=== PATIENT | female | born 1955 | race American Indian/Alaskan Native ===

== ENCOUNTER 2017-08-22 02:13 | Emergency (ER) | payer SELFPAY ==
--- NOTE | 2017-08-22 05:11 | Cat Scan Report ---
FINAL REPORT EXAM: CT HEAD/BRAIN WO CON HISTORY: Hypertension w/ headache hx. of anuerysym TECHNIQUE: CT imaging acquired through the head without intravenous contrast. Transaxial reformations are provided. PRIORS: None. FINDINGS: A right frontal ventriculostomy catheter is present extending through the right foramina of [place] into the 3rd ventricle. Sequela of aneurysmal treatment is present near the terminus of the right ICA. The ventricles, cisterns and sulci are otherwise within normal limits. No intraparenchymal or extra-axial mass, hemorrhage, or mass effect. Ray and white-matter differentiation is within normal limits for patient age. Normal spherical shape of the globes. No significant abnormality involving the imaged portions of the paranasal sinuses and mastoid air cells. No skull or facial fracture visualized. IMPRESSION: No acute intracranial abnormality.
[2017-08-22 05:15] LABS: Hematocrit 44.5 % (30.3-42.9); Hemoglobin 14.4 gm/dl (10.1-14.3); Mean Corpuscular HGB Conc 33 % (30-34); Mean Corpuscular Hemoglobin 27 pg (28-32); Mean Corpuscular Volume 82 fl (79-97); Platelet Count 194 K/mm3 (140-440); Red Blood Count 5.42 M/mm3 (3.65-5.03); Red Cell Distribution Width 18.8 % (13.2-15.2); White Blood Count 5.7 K/mm3 (4.5-11.0)
[2017-08-22 05:23] LABS: INR 0.9 (0.87-1.13)
[2017-08-22 05:24] LABS: Partial Thromboplastin Time 27.2 Sec. (24.2-36.6)
[2017-08-22 05:27] LABS: Anion Gap 15 mmol/L; BUN/Creatinine Ratio 13; Blood Urea Nitrogen 10 mg/dL (7-17); Calcium 8.6 mg/dL (8.4-10.2); Carbon Dioxide 28 mmol/L (22-30); Chloride 101.1 mmol/L (98-107); Glucose 237 mg/dL (65-100); Potassium 3.9 mmol/L (3.6-5.0); Sodium 140 mmol/L (137-145)
[2017-08-22 05:53] LABS: Basophils % (Manual) 0 % (0.0-1.8); Blastocytes % (Manual) 0 %; Diff Status Complete; RBC Morphology Normal
--- NOTE | 2017-08-22 09:11 | XRay Report ---
CHEST TWO VIEWS: 08/22/17 02:13:00 CLINICAL: Hypertension. History of aneurysm. COMPARISON: 07/25/08 FINDINGS: Cardiomegaly and normal pulmonary vessels. The lungs are normally expanded and clear.The bones and soft tissues are unremarkable. IMPRESSION: Cardiomegaly but no CHF.
[2017-08-22] MEDS ORDERED: CATAPRES PO ONE (11:36)
--- NOTE | 2017-08-22 12:00 | Emergency Department Report ---
HPI - General Chief Complaint: High BP Time Seen by Provider: 08/22/17 11:29 - HPI HPI: The patient presented to ED with elevated blood pressure, since 2 days ago. States pressure have been gradually increasing she is on lisinopril 40 mg daily and stated that she is compliant with medications. She has a history of brain aneurysm. No fever, chills, neck pain. She describes mild headache frontal area without radiations. ED Past Medical Hx - Past Medical History Previous Medical History?: Yes Hx Hypertension: Yes Hx Diabetes: Yes Additional medical history: Elevated cholesterol, Aneurysm 2007 and went to [place] for surgery - Surgical History Additional Surgical History: Hysterectomy - Social History Smoking Status: Current Every Day Smoker - Medications Home Medications: Home Medications Medication Instructions Recorded Confirmed Last Taken Type Aspirin BABY CHEW TAB 1 tab PO DAILY 07/25/16 07/25/16 Unknown History Lisinopril 40 mg PO DAILY 07/25/16 07/25/16 Unknown History glipiZIDE 5 mg PO DAILY 07/25/16 07/25/16 Unknown History metFORMIN 1,000 mg PO DAILY 07/25/16 07/25/16 Unknown History NIFEdipine [Procardia Xl] 60 mg PO QDAY #90 tab.er.24 08/22/17 Unknown Rx ED Review of Systems ROS: Stated complaint: HIDH BLOOD PRESSURE/HEADACHE Other details as noted in HPI Comment: All other systems reviewed and negative Musculoskeletal: as per HPI Skin: as per HPI Neurological: headache Physical Exam - Physical Exam Vital Signs: Vital Signs 08/22/17 08/22/17 03:55 09:00 Temperature 98.0 F 97.7 F Pulse Rate 79 76 Respiratory 18 18 Rate Blood Pressure 167/80 205/84 O2 Sat by Pulse 98 100 Oximetry Physical Exam: Physical Exam: Physical Exam: - General Limitations: No Limitations General appearance: alert, in no apparent distress. - Head Head exam: Present: atraumatic, normocephalic - Eye Eye exam: Present: normal appearance - ENT ENT exam: Present: mucous membranes moist - Neck Neck exam: Present: normal inspection - Respiratory Respiratory exam: Present: normal lung sounds bilaterally. Absent: respiratory distress - Cardiovascular Cardiovascular Exam: Present: normal rhythm, normal rate. Absent: systolic murmur, diastolic murmur, rubs, gallop - GI/Abdominal GI/Abdominal exam: Present: soft, normal bowel sounds - Extremities Exam Extremities exam: Present: normal inspection - Back Exam Back exam: Present: normal inspection - Neurological Exam Neurological exam: Present: alert, oriented X3 - Psychiatric Psychiatric exam: normal affect and mood - Skin Skin exam: Present: warm, dry, intact, normal color. Absent: rash ED Course Vital Signs 08/22/17 08/22/17 03:55 09:00 Temperature 98.0 F 97.7 F Pulse Rate 79 76 Respiratory 18 18 Rate Blood Pressure 167/80 205/84 O2 Sat by Pulse 98 100 Oximetry ED Medical Decision Making - Lab Data Result diagrams: 08/22/17 04:48 08/22/17 04:48 Critical care attestation.: If time is entered above; I have spent that time in minutes in the direct care of this critically ill patient, excluding procedure time. ED Disposition Clinical Impression: Labile essential hypertension Disposition: DC-01 TO HOME OR SELFCARE Is pt being admited?: No Does the pt Need Aspirin: No Condition: Stable Instructions: Hypertension (ED) Prescriptions: NIFEdipine [Procardia Xl] 60 mg PO QDAY #90 tab.er.24 Referrals: PRIMARY CARE, [Primary Care Provider] - 3-5 Days
[2017-08-22 12:04] VITALS: BP 178/85
== END 2017-08-22 12:13 | disposition home or self-care (01) ==
LOC: ED 02:13
DX: I10 Essential (primary) hypertension (principal); F17.200 Nicotine dependence, unspecified, uncomplicated; E11.9 Type 2 diabetes mellitus without complications; E78.00 Pure hypercholesterolemia, unspecified
CPT/HCPCS: 36415; 70450; 71020; 80048; 84484; 85007; 85025; 85610; 85730; 93005; 93010